=== PATIENT | male | born 1955 | race Caucasian/White ===

== ENCOUNTER 2016-08-24 14:56 | Inpatient (IN) | payer MEDICARE, MEDICAID ==
[2016-08-24] MEDS ORDERED: Levofloxacin 750 MG IVPREMIX(* 750 MG/150 ML BAG IVPB ONE (15:16)
[2016-08-24] MEDS: NS 0.9% 1000 ML* 2,000 ML IV ONE (15:29)
[2016-08-24 15:31] LABS: Hematocrit 47 % (42-52); Hemoglobin 15.2 g/dl (14.0-18.0); Mean Corpuscular HGB Conc 32 g/dl (31-36); Mean Corpuscular Hemoglobin 30 pg (27-31); Mean Corpuscular Volume 93 fL (80-94); Mean Platelet Volume 7 um3 (7.4-10.4); Red Blood Count 5.05 10^6/ul (4.0-5.4); Red Cell Distribution Width 17 % (10.5-15); White Blood Count 5.4 10^3/ul (3.5-10.8)
[2016-08-24 15:34] LABS: Add Diff/Slide Review? Slide Review Added; Comments Flag Yes
--- NOTE | 2016-08-24 15:37 | RAD ---
HISTORY: Shortness of breath COMPARISONS: December 05, 2015 VIEWS:1: Single frontal portable view of the chest at 3:15 PM FINDINGS: LINES AND TUBES: None. CARDIOMEDIASTINAL SILHOUETTE: The cardiomediastinal silhouette is normal for portable technique. PLEURA: The costophrenic angles are sharp. No pleural abnormalities are noted. LUNG PARENCHYMA: There is confluent alveolar opacification of the right mid and lower lung craft and to lesser extent of the left lower lung field. ABDOMEN: The upper abdomen is clear. There is no subphrenic gas. BONES AND SOFT TISSUES: No bone or soft tissue abnormalities are noted. IMPRESSION: BILATERAL BASILAR CONSOLIDATION. RECOMMEND FOLLOW-UP UNTIL RESOLUTION TO EXCLUDE UNDERLYING PULMONARY PARENCHYMAL PATHOLOGY
[2016-08-24 15:48] LABS: EPAP 8; FIO2 100; IPAP 14; Resp Rate 12
[2016-08-24 15:50] LABS: PCO2 Arterial 26 mmHg (35-45)
[2016-08-24 15:51] LABS: Albumin 3.9 g/dL (3.2-5.2); BUN/Creatinine Ratio 17.8 (8-20); EGFR African American 44.5 (>60); EGFR Non-African American 34.6 (>60); Globulin 4.8 g/dL (2-4); Potassium 3.4 mmol/L (3.5-5.0); Total Bilirubin 1.1 mg/dL (0.2-1.0); Total Protein 8.7 g/dL (6.4-8.9)
[2016-08-24 15:53] LABS: Troponin I 0.05 ng/mL (<0.04)
[2016-08-24 16:14] LABS: C Reactive Protein 184.65 mg/L (< 5.00)
[2016-08-24 16:44] LABS: Immature Granulocytes 64 % (0-9); Metamyelocytes % 5 % (0-2); Myelocytes % 5 % (0-1); Neutrophil % 26 % (38-83); Promyelocytes % 1 %
[2016-08-24 16:45] LABS: Add Path Review? YES; RBC Morphology Normal (Normal)
--- NOTE | 2016-08-24 16:59 | ADMNOTE ---
Subjective Date of Service: 08/24/16 Interval History: ' ADMSSION HISTORY AND PHYSICAL EXAM: Allergies Allergy/AdvReac Type Severity Reaction Status Date / Time No Known Allergies Allergy Verified 12/05/15 21:40 Home Medications Medication Instructions Recorded Confirmed Type Amitriptyline HCl 50 mg PO BEDTIME 08/15/12 12/05/15 History Bupropion HCl [Bupropion HCl Xl] 300 mg PO DAILY 08/15/12 12/05/15 History Interferon Beta-1A [Avonex Pen] 30 mcg IM WEEKLY 08/15/12 12/05/15 History Omeprazole [Prilosec] 20 mg PO EVERY OTHER DAY 08/15/12 12/05/15 History Oxycodone HCl 5 mg PO BID 08/15/12 12/05/15 History Baclofen TAB* 10 mg PO TID 12/05/15 12/05/15 History Calazime Skin Protectant/ applic TOPICAL Q12HR 12/05/15 History Celexa TAB* 20 mg PO DAILY 12/05/15 12/05/15 History Folic Acid TAB* 1 mg PO DAILY 12/05/15 12/05/15 History Methotrexate TAB* 7.5 mg PO WEEKLY 12/05/15 12/05/15 History Vitamin D3 50,000 units PO MONTHLY 12/05/15 12/05/15 History Ciprofloxacin TAB* [Cipro 500 MG 500 mg PO Q12HR #11 tab 12/14/15 Rx TAB*] Docusate CAP* [Colace Cap*] 200 mg PO BID PRN #0 cap 12/14/15 Rx Metoprolol Succinate XL TAB* 12.5 mg PO DAILY tab.xl 12/14/15 Rx [Toprol XL TAB*] predniSONE TAB* 5 mg PO DAILY #0 12/14/15 12/05/15 Rx HPI: Patient has been a resident of [facility] for about 2 years. Today about2- 3PM he was found to be hypoxic. His family states he has been losing weight for at least 6 months, eating and drinking very little Family History: Findings - unremarkable Social History: Findings - Resident of [facility]. Two sisters are the SDM's. Quit smoing 2014, no alcohol abuse. Past Medical History: Findings - R knee sx, cataract sx. Review of Systems - Measurements Intake and Output: Intake and Output Last 24 Hours 08/22/16 08/23/16 08/24/16 08/25/16 06:59 06:59 06:59 06:59 Weight 130 lb - Review of Systems Constitutional Symptoms: Positive: Weight Loss Dermatology: Positive: Other - hx bullous pemphigoid HEENT: Positive: Normal Eyes: Positive: Normal Thyroid: Positive: Normal Pulmonary: Positive: Other - see subjective Cardiology: Positive: Normal Gastroenterology: Positive: Anorexia Genital - Urinary: Positive: Normal Endocrinology: Positive: Normal Hematologic/Lymphatic: Negative: Anemia, Easy Brusing, Hx Leukemia, Hx Lymphoma, Use of Anticoagulant, Use of Antiplatelet Drugs, Other Neurology: Positive: Other - MS Psychiatry: Positive: Normal Objective Active Medications: Enoxaparin Sodium (Lovenox(*)) 30 mg SUBCUT Q24H ADIEL Sodium Chloride (Ns 0.9% 1000 Ml*) 2,000 mls @ 1,000 mls/hr IV .PER RATE ONE Stop: 08/24/16 17:15 Last Admin: 08/24/16 15:29 Dose: 1,000 mls/hr Potassium Chloride/Sodium Chloride (Ns 0.9% W/ 20 Meq Kcl 1000 Ml*) 1,000 mls @ 100 mls/hr IV PER RATE ADIEL Levofloxacin/Dextrose (Levaquin 750 Mg Ivpremix(*)) 750 mg in 150 mls @ 100 mls /hr IVPB Q48H ADIEL Morphine Sulfate (Morphine Inj (Syringe)*) 0.5 mg IV Q30M PRN PRN Reason: PAIN Stop: 08/24/16 18:44 Pantoprazole Sodium (Protonix Iv*) 40 mg IV Q24H [facility] Vital Signs 08/24/16 08/24/16 08/24/16 15:00 15:09 15:29 Temperature 97 F 97 F Pulse Rate 147 134 32 Respiratory 31 30 29 Rate Blood Pressure 138/112 138/112 (mmHg) O2 Sat by Pulse 87 87 66 Oximetry 08/24/16 08/24/16 08/24/16 15:45 15:50 15:51 Temperature Pulse Rate 130 Respiratory 33 34 38 Rate Blood Pressure 83/63 91/63 (mmHg) O2 Sat by Pulse 95 Oximetry 08/24/16 08/24/16 08/24/16 16:00 16:15 16:19 Temperature Pulse Rate 130 Respiratory 33 31 25 Rate Blood Pressure 92/64 92/63 (mmHg) O2 Sat by Pulse 70 Oximetry 08/24/16 08/24/16 08/24/16 16:30 16:31 16:45 Temperature Pulse Rate 131 Respiratory 31 Rate Blood Pressure 90/71 98/68 (mmHg) O2 Sat by Pulse 87 92 Oximetry Oxygen Devices in Use Now: CPAP/BiPAP Appearance: Partly up in bed, BIPAP in placae. Some eye contact, no other response to questions. Not moving. Eyes: No Scleral Icterus Neck: NL Appearance and Movements; NL JVP, No Thyroid Enlargement, Masses Respiratory: Symmetrical Chest Expansion and Respiratory Effort, Clear to Percussion - mild rhnochi R chest Cardiovascular: NL Sounds; No Murmurs; No JVD, RRR, No Edema, - Abdominal: NL Sounds; No Tenderness; No Distention, No Hepatosplenomegaly Extremities: No Edema, No Clubbing, Cyanosis Skin: No Rash or Ulcers, No Nodules or Sclerosis Neurological: - - bedridden, contracted Result Diagrams: 08/24/16 15:22 08/24/16 15:22 Assess/Plan/Problems-Billing Assessment: - Patient Problems (1) Aspiration pneumonia Current Visit: Yes Status: Acute Code(s): J69.0 - PNEUMONITIS DUE TO INHALATION OF FOOD AND VOMIT SNOMED Code(s): 325626066 Comment: CXR and hx very suggestive of aspiration. IV levofloxacin. I will meet with the family again in the AM. One HCP is driving in from [place]. (2) Multiple sclerosis Current Visit: No Status: Chronic Code(s): G35 - MULTIPLE SCLEROSIS SNOMED Code(s): 01614136 Comment: No oral meds now, will discuss comfort measures with family in AM. Swallow eval ordered, to be done if it is safe. (3) Bullous pemphigoid Current Visit: No Status: Acute Code(s): L12.0 - BULLOUS PEMPHIGOID SNOMED Code(s): 32640657 Comment: In remission. (4) Urinary retention Current Visit: Yes Status: Acute Code(s): R33.9 - RETENTION OF URINE, UNSPECIFIED SNOMED Code(s): 239469036 Comment: Neurogenic bladder. Chronic Patel.
[2016-08-24] MEDS ORDERED: Pantoprazole IV* 40 MG IV SCH (17:00)
[2016-08-24] MEDS ORDERED: Enoxaparin(*) 30 MG/0.3 ML SYR SUBCUT SCH (17:00)
[2016-08-24] MEDS ORDERED: NS 0.9% w/ 20 Meq KCL 1000 ML* 1,000 ML IV SCH (17:00)
[2016-08-24] MEDS ORDERED: Diltiazem IV VIAL* 125 MG/25 ML VIAL ONE (18:02)
[2016-08-24] MEDS: Morphine INJ* 2 MG/ML 1 ML SYRINGE IV PRN ×5 (18:24→22:03)
[2016-08-24] MEDS ORDERED: Morphine INJ* 2 MG/ML 1 ML SYRINGE IV ONE (18:32)
[2016-08-24] MEDS ORDERED: NS 0.9% 1000 ML* 1,000 ML IV ONE (18:32)
[2016-08-24] MEDS ORDERED: Morphine INJ* 2 MG/ML 1 ML SYRINGE ONE (20:10)
[2016-08-24] MEDS ORDERED: Morphine INJ* 10 MG/ML 1 ML SYRINGE IV ONE (22:01)
--- NOTE | 2016-08-24 22:16 | ED ---
Zuly Batres Salem, scribed for Narciso Díaz MD on 08/24/16 at 1522 . HPI Chest Pain - HPI Summary HPI Summary: Patient is a 61 y/o female who presents to the ED per EMS with SOB since 30-40 minutes [employer]. Per EMS, pt has a hx of CAD and MS, and was wheezing bilaterally upon their arrival. They also report his bp was in the 80s-90s/50s and he was having trouble talking. Pt is coming from [facility]. - History of Current Complaint Chief Complaint: EDChestPainROMI Hx Obtained From: EMS Onset/Duration: Started Minutes Ago, Still Present Timing: Constant Initial Severity: Moderate Current Severity: Moderate Pain Intensity: 0 Pain Scale Used: 0-10 Numeric Aggravating Factor(s): Nothing Alleviating Factor(s): Nothing Associated Signs and Symptoms: Positive: Weakness - Bilaterally., Shortness of Breath - Additional Pertinent History Primary Care Physician: [id number] - Allergy/Home Medications Allergies/Adverse Reactions: Allergies Allergy/AdvReac Type Severity Reaction Status Date / Time No Known Allergies Allergy Verified 12/05/15 21:40 PMH/Surg Hx/FS Hx/Imm Hx Endocrine/Hematology History: Denies: Hx Diabetes Cardiovascular History: Reports: Hx Hypercholesterolemia, Hx Hypertension, Hx Myocardial Infarction Respiratory History: Reports: Hx Chronic Obstructive Pulmonary Disease (COPD) Denies: Hx Asthma History: Reports: Other Problems/Disorders Denies: Hx Acute Renal Failure Musculoskeletal History: Denies: Hx Arthritis Psychiatric History: Reports: Hx Depression Infectious Disease History: No Infectious Disease History: Reports: Hx of Known/Suspected MRSA Denies: Traveled Outside the in Last 30 Days - Family History Known Family History: Negative: Cardiac Disease - Social History Alcohol Use: None Hx Substance Use: No Substance Use Type: Reports: None Smoking Status (MU): Former Smoker Type: Cigarettes Have You Smoked in the Last Year: Yes Review of Systems Negative: Fever Positive: Shortness Of Breath, Other - Wheezing bilaterally. All Other Systems Reviewed And Are Negative: Yes Physical Exam Triage Information Reviewed: Yes Vital Signs On Initial Exam: Initial Vitals Temp Pulse Resp BP Pulse Ox 97 F 147 31 138/112 87 08/24/16 15:00 08/24/16 15:00 08/24/16 15:00 08/24/16 15:00 08/24/16 15:00 Vital Signs Reviewed: Yes Appearance: Positive: Ill-Appearing, Pain Distress Skin: Positive: Other - Diaphoretic.. Negative: Dry Head/Face: Positive: Normal Head/Face Inspection Eyes: Positive: Normal Neck: Positive: Supple, Nontender Respiratory/Lung Sounds: Positive: Other - Decreased breath sounds. Tachypneic. Cardiovascular: Positive: Tachycardia Abdomen Description: Positive: Nontender, Soft Bowel Sounds: Positive: Present Musculoskeletal: Positive: Normal Neurological: Positive: Normal Psychiatric: Positive: Normal, Affect/Mood Appropriate Diagnostics - Vital Signs Vital Signs Temp Pulse Resp BP Pulse Ox 08/24/16 15:09 97 F 134 30 138/112 87 08/24/16 15:00 97 F 147 31 138/112 87 - Laboratory Lab Results: Lab Results 08/24/16 08/24/16 08/24/16 Range/Units 15:22 15:22 15:22 WBC 5.4 (3.5-10.8) 10^3/ul RBC 5.05 (4.0-5.4) 10^6/ul Hgb 15.2 (14.0-18.0) g/dl Hct 47 (42-52) % MCV 93 (80-94) fL MCH 30 (27-31) pg MCHC 32 (31-36) g/dl RDW 17 H (10.5-15) % Plt Count 580 H D (150-450) 10^3/ul MPV 7 L (7.4-10.4) um3 Immature Gran % (Auto) 64 H (0-9) % Neut % (Auto) 88.6 H (38-83) % Lymph % (Auto) 9.9 L (25-47) % [place] % (Auto) 1.2 (1-9) % Eos % (Auto) 0.1 (0-6) % Baso % (Auto) 0.2 (0-2) % Absolute Neuts (auto) 4.8 (1.5-7.7) 10^3/ul Absolute Lymphs (auto) 0.5 L (1.0-4.8) 10^3/ul Absolute Monos (auto) 0.1 (0-0.8) 10^3/ul Absolute Eos (auto) 0 (0-0.6) 10^3/ul Absolute Basos (auto) 0 (0-0.2) 10^3/ul Absolute Nucleated RBC 0 10^3/ul Neutrophils % 26 L (38-83) % Band Neutrophils % 53 H (0-8) % Lymphocytes % 10 L (25-47) % Metamyelocytes % 5 H (0-2) % Myelocytes % 5 H (0-1) % Promyelocytes % 1 % Nucleated RBC % 0 Normal RBC Morphology Normal (Normal) Hem Pathologist Commnt INR (Anticoag Therapy) 1.16 H (0.89-1.11) Patient Temperature ABG pH (7.35-7.45) ABG pCO2 (35-45) mmHg ABG pO2 (80-100) mmHg ABG HCO3 (19-31) mmol/L ABG O2 Saturation (95-98) % ABG Base Excess (-2.0-2.0) Respiration Rate O2 Delivery Device Ventilator Type Vent Mode FiO2 Inspiratory Time PEEP Pressure Support Pressure Control EPAP IPAP BiPAP Sodium 137 (133-145) mmol/L Potassium 3.4 L (3.5-5.0) mmol/L Chloride 96 L (101-111) mmol/L Carbon Dioxide 17 L (22-32) mmol/L Anion Gap 24 H (2-11) mmol/L BUN 35 H (6-24) mg/dL Creatinine 1.97 H (0.67-1.17) mg/dL Est GFR ( Amer) 44.5 (>60) Est GFR (Non-Af Amer) 34.6 (>60) BUN/Creatinine Ratio 17.8 (8-20) Glucose 245 H (70-100) mg/dL Lactic Acid (0.5-2.0) mmol/L Calcium 11.0 H (8.6-10.3) mg/dL Total Bilirubin 1.10 H (0.2-1.0) mg/dL AST 26 (13-39) U/L ALT 26 (7-52) U/L Alkaline Phosphatase 119 H (34-104) U/L Troponin I 0.05 H* (<0.04) ng/mL C-Reactive Protein 184.65 H (< 5.00) mg/L B-Natriuretic Peptide ( - 100) pg/mL Total Protein 8.7 (6.4-8.9) g/dL Albumin 3.9 (3.2-5.2) g/dL Globulin 4.8 H (2-4) g/dL Albumin/Globulin Ratio 0.8 L (1-3) 08/24/16 08/24/16 08/24/16 Range/Units 15:22 15:22 15:40 WBC (3.5-10.8) 10^3/ul RBC (4.0-5.4) 10^6/ul Hgb (14.0-18.0) g/dl Hct (42-52) % MCV (80-94) fL MCH (27-31) pg MCHC (31-36) g/dl RDW (10.5-15) % Plt Count (150-450) 10^3/ul MPV (7.4-10.4) um3 Immature Gran % (Auto) (0-9) % Neut % (Auto) (38-83) % Lymph % (Auto) (25-47) % [place] % (Auto) (1-9) % Eos % (Auto) (0-6) % Baso % (Auto) (0-2) % Absolute Neuts (auto) (1.5-7.7) 10^3/ul Absolute Lymphs (auto) (1.0-4.8) 10^3/ul Absolute Monos (auto) (0-0.8) 10^3/ul Absolute Eos (auto) (0-0.6) 10^3/ul Absolute Basos (auto) (0-0.2) 10^3/ul Absolute Nucleated RBC 10^3/ul Neutrophils % (38-83) % Band Neutrophils % (0-8) % Lymphocytes % (25-47) % Metamyelocytes % (0-2) % Myelocytes % (0-1) % Promyelocytes % % Nucleated RBC % Normal RBC Morphology (Normal) Hem Pathologist Commnt INR (Anticoag Therapy) (0.89-1.11) Patient Temperature Not Reportable ABG pH 7.26 L (7.35-7.45) ABG pCO2 26 L (35-45) mmHg ABG pO2 54 L* (80-100) mmHg ABG HCO3 13.9 L (19-31) mmol/L ABG O2 Saturation 83.6 L (95-98) % ABG Base Excess -13.6 L (-2.0-2.0) Respiration Rate 12 O2 Delivery Device Bipap Ventilator Type Not Reportable Vent Mode Not Reportable FiO2 100 Inspiratory Time Not Reportable PEEP Not Reportable Pressure Support Not Reportable Pressure Control Not Reportable EPAP 8 IPAP 14 BiPAP Not Reportable Sodium (133-145) mmol/L Potassium (3.5-5.0) mmol/L Chloride (101-111) mmol/L Carbon Dioxide (22-32) mmol/L Anion Gap (2-11) mmol/L BUN (6-24) mg/dL Creatinine (0.67-1.17) mg/dL Est GFR ( Amer) (>60) Est GFR (Non-Af Amer) (>60) BUN/Creatinine Ratio (8-20) Glucose (70-100) mg/dL Lactic Acid 11.7 H* (0.5-2.0) mmol/L Calcium (8.6-10.3) mg/dL Total Bilirubin (0.2-1.0) mg/dL AST (13-39) U/L ALT (7-52) U/L Alkaline Phosphatase (34-104) U/L Troponin I (<0.04) ng/mL C-Reactive Protein (< 5.00) mg/L B-Natriuretic Peptide 103 H ( - 100) pg/mL Total Protein (6.4-8.9) g/dL Albumin (3.2-5.2) g/dL Globulin (2-4) g/dL Albumin/Globulin Ratio (1-3) Result Diagrams: 08/24/16 15:22 08/24/16 15:22 Lab Statement: Any lab studies that have been ordered have been reviewed, and results considered in the medical decision making process. - Radiology CXR Radiology Interpretation Completed By: Radiologist - IMPRESSION: BILATERAL BASILAR CONSOLIDATION. RECOMMEND FOLLOW-UP UNTIL RESOLUTION TO EXCLUDE UNDERLYING PULMONARY PARENCHYMAL PATHOLOGY - EKG 1456 EKG Interpretation: Sinus tachycardia @ 141 bpm. Re-Evaluation - Re-Evaluation First Eval Re-Evaluation Time: 15:10 Second Eval Re-Evaluation Time: 15:21 Third Eval Re-Evaluation Time: 15:57 Chest Pain Course/Dx - Course Course Of Treatment: Mr. Hudson presented in respiratory distress and septic. He was found to have pneumonia and was clearly in extremis. He has a very clear Molst and was treated with fluids, antibiotics and BiPap. - Diagnoses Provider Diagnoses: PNEUMONIA - Provider Notifications Discussed Care Of Patient With: Dr. Martínez (photocopying machine operator) @ 8090. Dr. Martínez @ 5721. Dr. Santana (hospitalist) @ 9312. - Critical Care Time Critical Care Time: 30-74 min Discharge - Discharge Plan Condition: Guarded Disposition: ADMITTED TO [facility] The documentation as recorded by the Zuly tamayo Salem accurately reflects the service I personally performed and the decisions made by me, Narciso Díaz MD.
[2016-08-24] MEDS ORDERED: Atropine 1% (ORAL/SL)* 15 ML BTL SL PRN (23:24)
[2016-08-24] MEDS ORDERED: Morphine INJ* 10 MG/ML 1 ML SYRINGE ONE (23:28)
[2016-08-25] MEDS: Morphine PCA ADULT* 5 MG/ML 30 ML PCA SCH ×2 (00:15→02:21)
[2016-08-25 02:38] VITALS: BP 81/59
--- NOTE | 2016-08-25 05:29 | DS ---
Date of Admission: 08/24/2016 Date of Discharge: 08/25/2016 Discharge Diagnoses aspiration pneumonia acute hypoxic respiratory failure multiple sclerosis HX CVA HPI Patient has been a resident of [facility] for about 2 years. Today about2- 3PM he was found to be hypoxic. His family states he has been losing weight for at least 6 months, eating and drinking very little. Hospital Course Mr Hudson was admitted to the ICU in critical condition and rapidly deteriorated. Family was aware and present. They wished to try and keep him with us until his daughter could arrive from out of town in 2 hours. They were informed that may not be possible as he is a DNR/I, but that we would try. He was able to be maintained on BiPap and shortly after his daughter's arrival, she , her brother, and I had an extended conversation regarding their goals of treatment. They were very clear and unified in that he has not had a good quality of life and is not interested in life-saving measures. They requested he be kept comfortable and allowed to pass naturally. Their questions were sought and answered to their satisfaction. A morphine GTT was initiated. Mr Hudson was able to be kept comfortable and passed at 0415 on 08/25/2016. Time for Discharge: 35minutes
[2016-08-26] MEDS ORDERED: Levofloxacin 750 MG IVPREMIX(* 750 MG/150 ML BAG IVPB SCH (15:00)
== END 2016-08-25 04:15 | disposition expired | DRG 177 ==
LOC: ED 14:56 → ICU 16:37
PROVIDERS: ADMIT Internal Medicine; ATTEND Internal Medicine
PROC: 5A09357 Assistance with Respiratory Ventilation, Less than 24 Consecutive Hours, Continuous Positive Airway Pressure (ICD-10-PCS; principal; 2016-08-24)
DX: J69.0 Pneumonitis due to inhalation of food and vomit (principal); J96.01 Acute respiratory failure with hypoxia; L12.0 Bullous pemphigoid; J44.9 Chronic obstructive pulmonary disease, unspecified; I25.10 Atherosclerotic heart disease of native coronary artery without angina pectoris; G35 Multiple sclerosis; E78.00 Pure hypercholesterolemia, unspecified; I10 Essential (primary) hypertension; I25.2 Old myocardial infarction; Z86.14 Personal history of Methicillin resistant Staphylococcus aureus infection; Z87.891 Personal history of nicotine dependence; F32.9 Major depressive disorder, single episode, unspecified; R33.9 Retention of urine, unspecified; N31.9 Neuromuscular dysfunction of bladder, unspecified; Z86.73 Personal history of transient ischemic attack (TIA), and cerebral infarction without residual deficits; Z66 Do not resuscitate
CPT/HCPCS: 36415; 36600; 71010; 80053; 82803; 83605; 83880; 84484; 85025; 85060; 85610; 86140; 87040; 93005; 94660; J1650; J2270